=== PATIENT | female | born 2005 | race Caucasian/White ===

== ENCOUNTER → 2023-04-30 | Outpatient (REF) | payer OTHER | LOC: M LAB REF 21:12 | PROVIDERS: ATTEND Student in an Organized Health Care Education/Training Program | DX: R30.0 Dysuria (principal) ==

== ENCOUNTER → 2023-05-12 | Outpatient (REF) | payer OTHER | LOC: M LAB REF 18:58 | PROVIDERS: ATTEND Nurse Practitioner Family | DX: J02.9 Acute pharyngitis, unspecified (principal) ==

== ENCOUNTER → 2023-05-19 | Outpatient (REF) | payer OTHER | LOC: M LAB REF 16:18 | PROVIDERS: ATTEND Nurse Practitioner Family | DX: J06.9 Acute upper respiratory infection, unspecified (principal); R53.83 Other fatigue ==

== ENCOUNTER → 2023-07-17 | Outpatient (REF) | payer OTHER | LOC: M LAB REF 16:17 | PROVIDERS: ATTEND Student in an Organized Health Care Education/Training Program | DX: R30.0 Dysuria (principal) ==

== ENCOUNTER → 2023-12-13 | Outpatient (REF) | payer OTHER | LOC: M LAB REF 18:22 | PROVIDERS: ATTEND Physician Assistant | DX: N30.00 Acute cystitis without hematuria (principal); B37.31 Acute candidiasis of vulva and vagina ==

== ENCOUNTER → 2024-02-19 | Outpatient (CLI) | payer OTHER | LOC: M RAD 14:47 | PROVIDERS: ATTEND Registered Nurse | DX: R89.1 Abnormal level of hormones in specimens from other organs, systems and tissues (principal) ==

== ENCOUNTER → 2024-02-24 | Outpatient (REF) | payer OTHER | LOC: M LAB REF 19:30 | PROVIDERS: ATTEND Nurse Practitioner Family | DX: R30.0 Dysuria (principal) ==

== ENCOUNTER → 2024-03-11 | Outpatient (CLI) | payer OTHER ==
[~2024-03-11] MED LIST: ISOVUE-370 76% 100ML VIAL As Ordered ONE
== END ==
LOC: M RAD 16:07
PROVIDERS: ATTEND Registered Nurse
DX: R89.1 Abnormal level of hormones in specimens from other organs, systems and tissues (principal)

== ENCOUNTER → 2024-06-14 | Outpatient (CLI) | payer OTHER | LOC: M WUC 15:41 | PROVIDERS: ATTEND Registered Nurse | DX: R07.89 Other chest pain (principal); M54.2 Cervicalgia ==

== ENCOUNTER → 2024-08-20 | Outpatient (CLI) | payer OTHER | LOC: M RAD 07:32 | PROVIDERS: ATTEND Registered Nurse | DX: R10.32 Left lower quadrant pain (principal) ==